=== PATIENT | female | born 1990 | race Caucasian/White ===

== ENCOUNTER 2018-01-04 08:01 | Emergency (ER) | payer MEDICAID ==
--- NOTE | 2018-01-04 08:21 | ED Physician Chart ---
ED Chief Complaint/HPI - Patient Information Date Seen:: 01/04/18 Time Seen:: 08:21 Chief Complaint:: RIGHT EAR ACHE X 5 DAYS History of Present Illness:: THIS 27-YEAR-OLD FEMALE PRESENTS WITH A 5 DAY HISTORY OF PAIN IN THE RIGHT EAR. SHE HAS A HISTORY OF FREQUENT EAR ACHES THAT ARE USUALLY TREATED WITH DROPS. PATIENT IS ALLERGIC TO VICODIN HAS A CAUSES A ITCHY RASH. SHE HAS DECREASED HEARING IN THE RIGHT EAR WITH NO TINNITUS. SEVERITY OF THE PAIN IS RATED A 9 /10 BY THE PATIENT. THE EARACHE HAS NOT BEEN ACCOMPANIED BY ANY FEVER, CHILLS OR DIAPHORESIS. NO NASAL DISCHARGE AND NO SORE THROAT. THE PATIENT HAS BEEN TREATING HER EARACHE WITH [id number] DROPS SHE IS UNCERTAIN IF SHE HAS A DISCHARGE OR WHETHER SHE IS JUST WHERE SHE IS SEEN A DISCHARGE FROM THE DROPS THAT SHE IS USING. Allergies:: Allergies Allergy/AdvReac Type Severity Reaction Status Date / Time acetaminophen [From Vicodin] Allergy Verified 01/04/18 08:12 hydrocodone [From Vicodin] Allergy Verified 01/04/18 08:12 Vitals:: Vital Signs - 8 hr 01/04/18 08:14 Temp 97.7 F HR 114 RR 22 BP 173/100 O2 Sat % 99 ED Review of Systems - Review of Systems General/Constitutional: No fever, No chills, No weight loss, No weakness, No diaphoresis, No edema, No loss of appetite Skin: No skin lesions, No rash, No bruising Head: No headache, No light-headedness Eyes: No loss of vision, No diplopia ENT: Earache, No nasal drainage, No sore throat, No tinnitus Neck: No neck pain, No swelling, No thyromegaly, No stiffness, No mass noted Cardio Vascular: No chest pain, No palpitations, No orthopnea, No edema Pulmonary: No SOB, No cough, No sputum, No wheezing GI: No nausea, No vomiting, No diarrhea, No pain, No constipation, No hematemesis G/U: No dysuria, No hematuria Corrective Therapy Aide Teacher: No vaginal discharge, No abnormal vaginal bleed, No contraction Musculoskeletal: No bone or joint pain, No back pain, No muscle pain Psychiatric: No prior psych history, No depression, No suicidal ideation Hematopoietic: No bruising, No lymphadenopathy Allergic/Immuno: No urticaria, No angioedema Neurological: No syncope, No focal symptoms, No weakness, No paresthesia, No headache, No seizure, No dizziness, No confusion, No vertigo ED Past Medical History - Past Medical History Social History: Alcohol, Other (Drinks alcohol on the weekends AND USES POT INTERMITTENTLY.) Surgical History: , other ( Had ankle surgery on her left ankle at age [age] years old) Psychiatricy History: None ED Physical Exam - Physical Examination General/Constitutional: Awake, Well-developed, well-nourished, Alert, GCS 15, Non-toxic appearing, Ambulatory Other Gen/Cons comments:: ALTHOUGH THE PATIENT RATES HER PAIN SEVERITY BEING 9/10 SHE DOES NOT APPEAR TO BE IN ANY ACUTE DISTRESS. Head: Atraumatic Eyes: Lids, conjuctiva normal, PERRL, EOMI Skin: Nl inspection, No rash, No skin lesions, No ecchymosis, Well hydrated, No lymphadenopathy ENMT: External ears, nose nl, Nasal exam nl, Lips, teeth, gums nl, Oropharynx nl , Tonsils nl Other ENMT comments:: THE RIGHT TM IS OBSCURED BY CERUMEN IN THE AUDITORY CANAL. I DON'T APPRECIATE ANY INFLAMMATION OF THE CANAL ITSELF. THE PATIENT HAS MILD DISCOMFORT OF THE RIGHT EAR WHEN STRETCHING THE TARGIS. Neck: Nontender, Full ROM w/o pain, No JVD, No nuchal rigidity, No bruit, No mass, No stridor Respiratory: Nl effort/Exclusion, Clear to Auscultation, No Wheeze/Rhonchi/Rales Cardio Vascular: RRR, No murmur, gallop, rubs, NL S1 S2, Carotid/Femoral/Distal pulses equal bilaterally ( A PULSE RATE OF 114 AND REGULAR.) GI: No tenderness/rebounding/guarding, No organomegaly, No hernia, Normal BS's, No mass/bruits, No McBurney tenderness Other GI comments:: Rectal examination was deferred at my discretion. : No CVA tenderness ( The patient had a moderately large chunk of cerumen and the external auditory canal of the right side which was up securing a portion of the tympanic membrane. I was unable to completely visualize the tympanic membrane due to the obstruction. The case was discussed with the pharmacologists who recommended otic Cipro DEX SO WAS TO PREVENT OTOTOXICITY OF OTHER TOPICAL OTIC ANTIBIOTICS) Extremities: No tenderness or effusion, Full ROM, normal strength in all extremities, No edema Neuro/Psych: Alert/oriented, Normal sensory exam, Normal motor strength, Judgement/insight normal, Mood normal, Normal gait, No focal deficits Misc: Normal back, No paraspinal tenderness ED Labs/Radiology/EKG Results - Lab Results Results: NO INDICATIONS FOR LABORATORY OR RADIOGRAPHIC STUDIES. ED Assessment - Assessment General Assessment: CASE SUMMARY: THIS 27-YEAR-OLD FEMALE PRESENTED WITH RT SIDED EAR INFECTION. SHE HAS A PRIOR HISTORY OF FREQUENT OTITIS EXTERNA. THE PAIN IS SEVERE BUT THE PT HAS NO FEVER OR CHILLS. ON EXAM THERE IS NO EXUDATE OR SWELLING. IN THE AUDITORY CANAL. CANAL BECAUSE I WAS UNABLE CONFIRM THE TM WAS INTA GAVECT I DISCUSSED THE SITUATION WITH OUR NOTE TAKER RECOMMENDED CPRO-DEX AND I WROTE A RX FOR IT. SHE WAS ADVISED TO RETURN TO ER IF HER SYMPTMS SIGNNIFICANTLY WORSENEFOR A RIGHT EAR ACHE: NO FORGEIGN BODY INVASION BY INSECT INTO. THE EAR CANAL BASED ON MY EXAM. NOT EVARISTO TRAUMA BBASED ON THERE WAS NO HISTORY OF OF ANY BAROTRAUMA. NOT ACUTE TONSILLITIS WITH RADIATED PAIN TO THE IPISLATERERAL EAR. ED Septic Shock - . Is Septic Shock (SBP<90, OR Lactate>4 mmol\L) present?: No - <6hrs of presentation: Vital Signs: Vital Signs - 8 hr 01/04/18 08:14 Temp 97.7 F HR 114 RR 22 BP 173/100 O2 Sat % 99 ED Reassessment (Disposition) - Reassessment Reassessment Condition:: Unchanged - Diagnosis Diagnosis:: OTITIS EXTERNA. HYPERTENSION. FOLLOW-UP WITH HER ASSIGNED PHYSICIAN AFTER YOUR INSURANCE IS ACTIVATED. RETURN TO THE EMERGENCY DEPARTMENT FOR ANY SIGNIFICANT WORSENING OF YOUR SYMPTOMS OR IF THEY HAD NOT RESOLVED BY THE END OF THE COURSE OF THE CIPRODEX. - Aftercare/Follow up Instructions Aftercare/Follow-Up Instructions:: Counseled pt & family regarding lab results/ diagnosis & need follow up - Patient Disposition Discharge/Transfer:: Home (the patient will be getting insurance as of 2017. She should follow-up with her assigned DrJo for reevaluation of ear pain. Should also be followed up over a 2-3 months. For hypertension.) ED Discharge Plan - Patient Disposition Admit/Discharge/Transfer: PT DISCHARGED HOME Condition at Disposition: Stable Prescriptions: Ciprofloxacin/Hydrocortisone [Cipro Hc Otic Suspension] 4 drop RIGHT EAR BID # 10 ml Instructions: Otitis Externa, [id number], Hypertension, [id number], Smoking Cessation, Tips For Success Accepting Physician: Arturo Montano [Provisional Staff] -
== END 2018-01-04 09:23 | disposition home or self-care (01) ==
LOC: ER 08:01
DX: H60.91 Unspecified otitis externa, right ear (principal); I10 Essential (primary) hypertension
CPT/HCPCS: Z7502

== ENCOUNTER 2019-01-22 01:38 | Emergency (ER) | payer MEDICAID ==
--- NOTE | 2019-01-22 02:51 | ED Physician Chart ---
ED Chief Complaint/HPI - Patient Information Date Seen:: 01/22/19 Time Seen:: 02:45 Chief Complaint:: laceration rt knee History of Present Illness:: 28 yr old female who misstepped and fell on curb lacerating rt knee skin area 10 cm woung across the middle of the knee areadeep down to the sub cutaneous Allergies:: Allergies Allergy/AdvReac Type Severity Reaction Status Date / Time acetaminophen [From Vicodin] Allergy Verified 01/04/18 08:12 hydrocodone [From Vicodin] Allergy Verified 01/04/18 08:12 Vitals:: Vital Signs - 8 hr 01/22/19 01:53 Temp 98.1 F HR 104 RR 19 BP 133/82 O2 Sat % 97 ED Review of Systems - Review of Systems General/Constitutional: No fever Skin: Other (skin laceration) Head: No headache Eyes: No loss of vision ENT: No earache Neck: No neck pain Cardio Vascular: No chest pain Pulmonary: No SOB GI: No vomiting G/U: No dysuria Musculoskeletal: No bone or joint pain Endocrine: No polyuria Psychiatric: No prior psych history Hematopoietic: Bruising Allergic/Immuno: No urticaria Neurological: No syncope ED Past Medical History - Past Medical History Past Medical History: No significant medical hx Family Medical History - Family Member Mother History Unknown: Yes ED Physical Exam - Physical Examination General/Constitutional: Well-developed, well-nourished Head: Atraumatic Eyes: Lids, conjuctiva normal Other Skin comments:: laceration ENMT: External ears, nose nl Neck: Nontender Respiratory: Nl effort/Exclusion Cardio Vascular: RRR GI: No tenderness/rebounding/guarding Other Extremities comments:: rt knee limping Neuro/Psych: Alert/oriented ED Labs/Radiology/EKG Results - Lab Results Results: rt knee laceration s/p suture placement ED Assessment - Assessment General Assessment: laceration rt knee area - Procedures Procedures:: wound prepped with betadyne anesthetized with lidocaine one percent 10 ccs and then closed with 4-0 prolene approx 12 sitches interrupted pt tolerated the procedure well no comlications wound dressed suture removal 14 days ED Septic Shock - . Is Septic Shock (SBP<90, OR Lactate>4 mmol\L) present?: No - <6hrs of presentation: Vital Signs: Vital Signs - 8 hr 01/22/19 01:53 Temp 98.1 F HR 104 RR 19 BP 133/82 O2 Sat % 97 ED Reassessment (Disposition) - Reassessment Reassessment:: rt knee laceration Reassessment Condition:: Improved - Diagnosis Diagnosis:: rt knee laceration - Aftercare/Follow up Instructions Aftercare/Follow-Up Instructions:: Counseled pt regarding lab results/diagnosis & need follow up Medication Prescribed:: keflex - Patient Disposition Discharge/Transfer:: Home Condition at Disposition:: Stable
== END 2019-01-22 02:50 | disposition home or self-care (01) ==
LOC: ER 01:38
DX: S81.011A Laceration without foreign body, right knee, initial encounter (principal); Z88.6 Allergy status to analgesic agent; Z88.5 Allergy status to narcotic agent; W10.9XXA Fall (on) (from) unspecified stairs and steps, initial encounter; Y93.89 Activity, other specified; Y92.89 Other specified places as the place of occurrence of the external cause; Y99.8 Other external cause status
CPT/HCPCS: X7704; Z7502; Z7610

== ENCOUNTER 2019-02-08 16:47 | Emergency (ER) | payer MEDICAID ==
--- NOTE | 2019-02-08 17:28 | ED Physician Chart ---
ED Chief Complaint/HPI - Patient Information Date Seen:: 02/08/19 Time Seen:: 16:55 Chief Complaint:: Wound Check History of Present Illness:: pt is S/P Sutured Right Knee Laceration x 2 weeks; pt presents for suture removal; pt has no complaints; pt denies pain, weakness, dizziness, paresthesias , H/As, neck pain, C/P, SOB, Abd. Pain, visual or gait changes, or urinary s/s; pt's last tetanus shot: < 5 years; UTD Allergies:: Allergies Allergy/AdvReac Type Severity Reaction Status Date / Time acetaminophen [From Vicodin] Allergy Verified 01/04/18 08:12 hydrocodone [From Vicodin] Allergy Verified 01/04/18 08:12 Vitals:: Vital Signs - 8 hr 02/08/19 16:58 Temp 97.8 F HR 104 RR 16 BP 143/91 O2 Sat % 98 Historian:: Patient, Friend Review:: Nurse's Note Reviewed, Old Chart Reviewed ED Review of Systems - Review of Systems General/Constitutional: No fever, No chills, No weight loss, No weakness, No diaphoresis, No edema, No loss of appetite Skin: No skin lesions, No rash, No bruising Head: No headache, No light-headedness Eyes: No loss of vision, No pain, No diplopia ENT: No earache, No nasal drainage, No sore throat, No tinnitus Neck: No neck pain, No swelling, No thyromegaly, No stiffness, No mass noted Cardio Vascular: No chest pain, No palpitations, No PND, No orthopnea, No edema Pulmonary: No SOB, No cough, No sputum, No wheezing GI: No nausea, No vomiting, No diarrhea, No pain, No melena, No hematochezia, No constipation, No hematemesis G/U: No dysuria, No frequency, No hematuria, No nacturia Bander Hand: No vaginal discharge, No abnormal vaginal bleed, No contraction Musculoskeletal: No bone or joint pain, No back pain, No muscle pain Endocrine: No polyuria, No polydipsia Psychiatric: No prior psych history, No depression, No anxiety, No suicidal ideation, No homicidal ideation, No auditory hallucination, No visual hallucination Hematopoietic: No bruising, No lymphadenopathy Allergic/Immuno: No urticaria, No angioedema Neurological: No syncope, No focal symptoms, No weakness, No paresthesia, No headache, No seizure, No dizziness, No confusion, No vertigo ED Past Medical History - Past Medical History Obtainable: Yes Past Medical History: No significant medical hx Family History: None Social History: Non Smoker, No Alcohol, No Drug Use, Single Surgical History: None Psychiatricy History: None Medication: Reviewed Family Medical History - Family Member Mother History Unknown: Yes ED Physical Exam - Physical Examination General/Constitutional: Awake, Well-developed, well-nourished, Alert, No distress, GCS 15, Non-toxic appearing, Ambulatory Head: Atraumatic Eyes: Lids, conjuctiva normal, PERRL, EOMI Skin: Nl inspection, No rash, No skin lesions, No ecchymosis, Well hydrated, No lymphadenopathy Other Skin comments:: Right Knee Wound is healing well; no s/s of infection; no ligament instability; Gait: WNL; no joint tenderness; no septic joints; good motor, tendon, and sensory functions; good NV functions ENMT: External ears, nose nl, TM canals nl, Nasal exam nl, Lips, teeth, gums nl , Oropharynx nl, Tonsils nl Neck: Nontender, Full ROM w/o pain, No JVD, No nuchal rigidity, No bruit, No mass, No stridor Other Neck comments:: supple; no meningeal signs; no cervical tenderness; no bruits Respiratory: Nl effort/Exclusion, Clear to Auscultation, No Wheeze/Rhonchi/Rales Cardio Vascular: RRR, No murmur, gallop, rubs, NL S1 S2, Carotid/Femoral/Distal pulses equal bilaterally GI: No tenderness/rebounding/guarding, No organomegaly, No hernia, Normal BS's, Nondistended, No mass/bruits, No McBurney tenderness, Rectum exam nl Other GI comments:: no pulsatile masses : No CVA tenderness Extremities: No tenderness or effusion, Full ROM, normal strength in all extremities, No edema, Normal digits & nails Neuro/Psych: Alert/oriented, DTR's symmetric, Normal sensory exam, Normal motor strength, Judgement/insight normal, Mood normal, Normal gait, No focal deficits Other Neuro/Psych comments:: no focal signs Misc: Normal back, No paraspinal tenderness ED Assessment - Procedures Informed Consent: Procedure/risk/benefits explained by MD: Yes Laceration Type:: Simple Inspection: No dirt/debris, NO FB Post Procedure/Splint Exam: No Active Bleeding, Full Range of Motion, Neuro/ Vascular Exam Comments:: Complete Removal of all Sutures of Right knee Wound; no complications; good NV functions ED Septic Shock - . Is Septic Shock (SBP<90, OR Lactate>4 mmol\L) present?: No - <6hrs of presentation: Vital Signs: Vital Signs - 8 hr 02/08/19 16:58 Temp 97.8 F HR 104 RR 16 BP 143/91 O2 Sat % 98 ED Reassessment (Disposition) - Reassessment Reassessment:: pt is asymptomatic upon discharge Reassessment Condition:: Improved - Diagnosis Diagnosis:: Right Knee Wound; Removal of all Sutures; Healing Right Knee Wound - Aftercare/Follow up Instructions Aftercare/Follow-Up Instructions:: Counseled pt regarding lab results/diagnosis & need follow up, Refer to Discharge Instructions, Counseled pt & family regarding lab results/diagnosis & need follow up Medication Prescribed:: Neosporin Ointment and dressing bid x 7 days; Wound Care Instructions - Patient Disposition Discharge/Transfer:: Home Condition at Disposition:: Stable, Improved (RTER prn if existing s/s reoccur and/or get worse and/or any other new s/s occur; ACIs given for all above Dx; Refer to Vascular Surgeon/Orthopedist/It Specialist [email or web address]; F/U with PMD in one day or prn; RTER prn if concerned)
== END 2019-02-08 17:45 | disposition home or self-care (01) ==
LOC: ER 16:47
DX: S81.011D Laceration without foreign body, right knee, subsequent encounter (principal); Z88.5 Allergy status to narcotic agent; Z88.6 Allergy status to analgesic agent; X58.XXXD Exposure to other specified factors, subsequent encounter
CPT/HCPCS: Z7610